=== PATIENT | male | born 2000 ===

== ENCOUNTER 2020-06-27 15:45 | Emergency (ER) | payer MEDICAID ==
[~2020-06-27] VITALS: Ht 167.6 cm; Wt 64.5 kg
[2020-06-27 15:59] VITALS: BP 143/78
== END 2020-06-27 18:02 | disposition home or self-care (01) ==
LOC: EMS 15:51
DX: S20.219A Contusion of unspecified front wall of thorax, initial encounter (principal); R03.0 Elevated blood-pressure reading, without diagnosis of hypertension; F17.210 Nicotine dependence, cigarettes, uncomplicated; W19.XXXA Unspecified fall, initial encounter; Y93.89 Activity, other specified; Y92.89 Other specified places as the place of occurrence of the external cause; Y99.8 Other external cause status
CPT/HCPCS: 71046; 71046-TC